=== PATIENT | male | born 1950 | race Hispanic/Latino ===

== ENCOUNTER → 2017-11-26 | Outpatient (CLI) | payer OTHER ==
[~2017-11-26] MED LIST: ASPI-1197 PO; CLOP75TA14 PO; FURO40TA5 PO; GABA600T PO; LOSA25TA21 PO; LOSA50TA37 PO; METF500T6 PO; METFORMIN PO; PRAV10TA39 PO; TAMS0.4C32 PO; TIMOLOL MALEATE OP; TRAM50TA4 PO; VARE1TAB22 PO
== END | disposition home or self-care (01) ==
LOC: SHCH 13:18
PROVIDERS: ATTEND Internal Medicine Cardiovascular Disease
DX: I70.213 Atherosclerosis of native arteries of extremities with intermittent claudication, bilateral legs (principal)
CPT/HCPCS: 93970

== ENCOUNTER → 2017-12-10 | Outpatient (CLI) | payer OTHER | END | disposition home or self-care (01) | LOC: RAH 09:23 | PROVIDERS: ATTEND Internal Medicine Cardiovascular Disease | DX: I70.0 Atherosclerosis of aorta (principal); I73.9 Peripheral vascular disease, unspecified | CPT/HCPCS: 76775; 93925 ==

== ENCOUNTER 2017-12-30 05:51 | Day surgery (SDC) | payer OTHER ==
[2017-12-26 14:02] VITALS: BP 127/61
[2017-12-26 14:16] LABS: BASOPHILS % (AUTO) 0.6 % (0.0-5.0); EOSINOPHILS % (AUTO) 1.9 % (0.0-8.0); HEMATOCRIT 35.8 % (42-54); LYMPHOCYTES % (AUTO) 17.5 % (21.0-51.0); MEAN CORPUSCULAR HEMOGLOBIN 29.2 pg (27.0-33.0); MEAN CORPUSCULAR HGB CONC 33.8 g/dL (32.0-36.0); MEAN CORPUSCULAR VOLUME 86.4 fL (79-99); MONOCYTES % (AUTO) 10.7 % (3.0-13.0); NEUTROPHILS % (AUTO) 69.3 % (40.0-77.0); PLATELET COUNT (AUTO) 231 K/uL (130-400); RED BLOOD CELL COUNT(AUTO) 4.14 MIL/uL (4.50-6.20); RED CELL DISTRIBUTION WIDTH 13.8 % (11.0-15.5); WHITE BLOOD COUNT (AUTO) 6.8 K/uL (4.8-10.8)
[2017-12-26 14:24] LABS: APPEARANCE,URINE Clear (CLEAR); BILIRUBIN,URINE Negative (NEGATIVE); COLOR,URINE Yellow (YELLOW); GLUCOSE, URINE (UA) >=1000 mg/dL (NEGATIVE); KETONES,URINE Negative (NEGATIVE); LEUKOCYTE ESTERASE ,URINE Negative (NEGATIVE); NITRATE,URINE Negative (NEGATIVE); OCCULT BLOOD,URINE Negative (NEGATIVE); PROTEIN,URINE Trace (NEGATIVE)
[2017-12-26 14:25] LABS: POTASSIUM 4.5 mmol/L (3.5-5.1)
[2017-12-26 14:29] LABS: INR 0.95 (0.85-1.15); PARTIAL THROMBOPLASTIN TIME 30.8 SEC (26.3-35.5)
[2017-12-26 14:39] LABS: RBC,URINE None Seen /HPF (0-1); WBC,URINE None Seen /HPF (0-1)
[2017-12-26 14:40] LABS: BACTERIA,URINE Rare /HPF (None Seen); SQUAMOUS EPITHELIAL CELL,UR 0-2 /HPF (0-2)
[2017-12-30] VITALS (23 sets, daily range): BP systolic 100–178; BP diastolic 45–86
[~2017-12-30] VITALS: Ht 172.7 cm; Wt 81.5 kg
[~2017-12-30 05:51] MED LIST changes: -GABA600T PO; -LOSA25TA21 PO; -METF500T6 PO; -VARE1TAB22 PO
[2017-12-30] MEDS ORDERED: METF500T6 PO (07:11)
[2017-12-30] MEDS ORDERED: LIDOCAINE HCL 1% 20 ML VIAL ONE (07:34)
[2017-12-30] MEDS ORDERED: HEPARIN SODIUM 1000UNIT/ML 10ML VIAL ONE ×2 (07:34→08:48)
[2017-12-30] MEDS ORDERED: NITROGLYCERIN 5 MG/ML 10 ML VIAL IV ONE (07:34)
[2017-12-30] MEDS ORDERED: MIDAZOLAM HCL 1 MG/ML 2ML VIAL ONE ×2 (07:35→08:51)
[2017-12-30] MEDS ORDERED: FENTANYL CITRATE PF 50 MCG/1 ML 2ML VIAL ONE (07:35)
[2017-12-30] MEDS ORDERED: ISOVUE-300 100 ML VIAL IV ONE (07:35)
[2017-12-30] MEDS ORDERED: LIDOCAINE HCL 2% 20ML ONE (07:58)
[2017-12-30] MEDS ORDERED: SODIUM CHLORIDE 0.9% 1000ML 1,000 ML IV SCH ×2 (08:00→09:02)
[2017-12-30] MEDS ORDERED: CLOPIDOGREL BISULFATE 300 MG TAB ONE (09:03)
[2017-12-30] MEDS ORDERED: ASPIRIN 325MG EC TAB 325 MG TABLET.DR PO ONE (09:03)
[2017-12-30] MEDS ORDERED: DEXTROSE 50%-WATER 50 ML DISP.SYRIN IV PRN (09:15)
[2017-12-30] MEDS ORDERED: HYDRALAZINE HCL 20 MG/ML VIAL IV PRN (09:15)
[2017-12-30] MEDS ORDERED: NITROGLYCERIN 0.4 MG SL TAB SL PRN (09:15)
[2017-12-30] MEDS ORDERED: GLUCAGON 1MG KIT 1 MG ML IM PRN (09:15)
[2017-12-30] MEDS ORDERED: ACETAMINOPHEN-CODEINE 300/30MG TAB PO PRN (09:15)
[2017-12-30] MEDS ORDERED: INSULIN HUMULIN R 100 UNIT/ML 3ML SQ SCH (11:30)
[2017-12-30] MEDS ORDERED: ATROPINE SULFATE 0.1 MG/ML 10 ML SYG IVP ONE (12:26)
== END 2017-12-30 17:50 | disposition home or self-care (01) ==
LOC: DAH 05:51
PROVIDERS: ATTEND Internal Medicine Cardiovascular Disease
DX: I70.213 Atherosclerosis of native arteries of extremities with intermittent claudication, bilateral legs (principal); I25.10 Atherosclerotic heart disease of native coronary artery without angina pectoris; I87.2 Venous insufficiency (chronic) (peripheral); Z98.890 Other specified postprocedural states; I99.8 Other disorder of circulatory system; I70.0 Atherosclerosis of aorta; J90 Pleural effusion, not elsewhere classified; E11.51 Type 2 diabetes mellitus with diabetic peripheral angiopathy without gangrene; I11.9 Hypertensive heart disease without heart failure; E78.00 Pure hypercholesterolemia, unspecified; Z79.899 Other long term (current) drug therapy; Z82.49 Family history of ischemic heart disease and other diseases of the circulatory system; Z83.3 Family history of diabetes mellitus
CPT/HCPCS: 36415; 37221; 37223; 71045; 75625; 75716; 80048; 81001; 82948 ×3; 85025; 85347; 85610; 85730; 93005; 99152; A4606; C1725; C1769; C1876 ×2; C1894 ×2; J0360; J1644 ×2; J2250 ×2; J3010; J3490 ×2; Q9967; 75710; 99153; 99156; 99157; J0461

== ENCOUNTER 2018-11-26 17:52 | Inpatient (IN) | payer OTHER | END 2018-11-28 18:11 | disposition home or self-care (01) | LOC: EDH 17:52 → EDHIP 21:00 → 3DH 21:42 ==

== ENCOUNTER → 2021-09-13 | Outpatient (CLI) | payer OTHER ==
[~2021-09-13] MED LIST changes: +CLOP75TA32 PO; +GABA600T10 PO; +GLIM4TAB36 PO; -LOSA50TA37 PO; +LOSA50TA64 PO; +METF-445 PO; -METFORMIN PO; -TIMOLOL MALEATE OP; -TRAM50TA4 PO; +VARE1TAB21 PO
== END | disposition home or self-care (01) ==
LOC: SHCH 11:02
PROVIDERS: ATTEND Internal Medicine Cardiovascular Disease
DX: I73.9 Peripheral vascular disease, unspecified (principal); I77.89 Other specified disorders of arteries and arterioles; I87.2 Venous insufficiency (chronic) (peripheral)
CPT/HCPCS: 93925; 93970

== ENCOUNTER → 2021-10-29 | Outpatient (CLI) | payer OTHER ==
[~2021-10-29] MED LIST changes: +IOHEXOL 350 MG/ML 100ML INFUS..BTL IV ONE; +IOHEXOL-350 50ML VIAL IV ONE
== END | disposition home or self-care (01) ==
LOC: RAH 10:02
PROVIDERS: ATTEND Internal Medicine Cardiovascular Disease
DX: I74.5 Embolism and thrombosis of iliac artery (principal); I74.3 Embolism and thrombosis of arteries of the lower extremities; I73.9 Peripheral vascular disease, unspecified; I70.8 Atherosclerosis of other arteries; I51.7 Cardiomegaly; K82.8 Other specified diseases of gallbladder; J84.10 Pulmonary fibrosis, unspecified; M47.815 Spondylosis without myelopathy or radiculopathy, thoracolumbar region; N28.1 Cyst of kidney, acquired; Z95.828 Presence of other vascular implants and grafts
CPT/HCPCS: 75635; Q9967 ×2